=== PATIENT | female | born 1955 ===

== ENCOUNTER 2024-04-17 05:16 | Day surgery (SDC) | payer OTHER ==
[~2024-04-17 05:16] MED LIST: HORIZANT300 MG PO; LIPITOR20 MG PO
[2024-04-17] MEDS ORDERED: CIPROFLOXACIN IN 5 % DEXTROSE 400 MG/200 ML PIGGYBAG IV ONE (06:12)
[2024-04-17] MEDS ORDERED: LIDOCAINE HCL 1%/EPINEPHRINE 20ML VIAL IJ ONE (07:03)
[2024-04-17] MEDS ORDERED: CHLORHEXIDINE GLUCONATE 120 ML BOTTLE TOP ONE (07:03)
[2024-04-17] MEDS ORDERED: GENTAMICIN SULFATE 40 MG/ML VIAL ONE (07:06)
[2024-04-17] MEDS ORDERED: TRAM1TAB98 PO (09:41)
[2024-04-17] MEDS ORDERED: MACROBID 100 M100 MG PO (09:42)
== END 2024-04-17 13:00 | disposition home or self-care (01) ==
LOC: CIR.AMB 05:16
PROVIDERS: ATTEND Obstetrics & Gynecology Gynecology
DX: D26.0 Other benign neoplasm of cervix uteri (principal); N81.3 Complete uterovaginal prolapse; N81.82 Incompetence or weakening of pubocervical tissue; N81.83 Incompetence or weakening of rectovaginal tissue; Z88.0 Allergy status to penicillin; Z88.2 Allergy status to sulfonamides; J45.909 Unspecified asthma, uncomplicated; H93.19 Tinnitus, unspecified ear; R42 Dizziness and giddiness